=== PATIENT | female | born 1965 | race Caucasian/White ===

== ENCOUNTER 2018-04-07 16:17 | Emergency (ER) | payer BC ==
[2018-04-07 16:55] VITALS: BP 126/57
[2018-04-07] MEDS ORDERED: Fluorescein Sodium TOPICAL* 1 MG TEST STRIP ONE (17:43)
[2018-04-07] MEDS ORDERED: Fluorescein Sodium TOPICAL* 1 MG TEST STRIP OPHTHALMIC ONE (17:43)
--- NOTE | 2018-04-07 17:59 | UC ---
Eye Complaint HPI - HPI Summary HPI Summary: Patient is a 53-year-old female that presents here for evaluation of her left eye. For about a week and a half she has had tearing of the left eye as well as a mild foreign body sensation. She initially thought she got some mascara in her eye. She has no photophobia. She has been using Polytrim antibiotic eyedrops for almost a week without any change in her symptoms. Her left eye is itchy and feels gritty. She does not wear contact lenses. She has not had any URI symptoms. - History of Current Complaint Chief Complaint: UCEye Stated Complaint: LT EYE COMPLAINT Time Seen by Provider: 04/07/18 17:37 Hx Obtained From: Patient ?: Yes Onset/Duration: Gradual Onset, Lasting Days - 1 and 1/2 weeks Timing: Constant Severity Initially: Mild Severity Currently: Mild Pain Intensity: 3 Pain Scale Used: 0-10 Numeric Character: Foreign Body Sensation Aggravating Factor(s): Nothing Alleviating Factor(s): Nothing Associated Signs And Symptoms: Positive: Photophobia, Drainage (Clear) - Allergies/Home Medications Allergies/Adverse Reactions: Allergies Allergy/AdvReac Type Severity Reaction Status Date / Time No Known Allergies Allergy Verified 04/07/18 16:54 Home Medications: Home Medications Escitalopram Oxalate [Lexapro] 10 mg PO DAILY 04/07/18 [History Confirmed ] Polymyx/Trimethoprim OPTH* [Polytrim OPHTH*] 1 drop LEFT EYE Q3H 04/07/18 [ History Confirmed 04/07/18] PMH/Surg Hx/FS Hx/Imm Hx Previously Healthy: Yes - Surgical History Surgical History: Yes - Family History Known Family History: Positive: Hypertension - Social History Alcohol Use: Occasionally Substance Use Type: None Smoking Status (MU): Heavy Every Day Tobacco Smoker Review of Systems Constitutional: Negative Skin: Negative Eyes: Eye Redness ENT: Negative Respiratory: Negative Cardiovascular: Negative Gastrointestinal: Negative Genitourinary: Negative Motor: Negative Neurovascular: Negative Musculoskeletal: Negative Neurological: Negative Psychological: Negative All Other Systems Reviewed And Are Negative: Yes Physical Exam Triage Information Reviewed: Yes Appearance: Well-Appearing, No Pain Distress, Well-Nourished Vital Signs: Initial Vital Signs Temp 97.4 F 04/07/18 16:50 Pulse 75 10/30/18 16:50 Resp 16 04/07/18 16:50 BP 126/57 04/07/18 16:50 Pulse Ox 100 04/07/18 16:50 Vital Signs Reviewed: Yes Eyes: Positive: Conjunctiva Inflamed, Discharge - tearing, Other: - (-) fb noted , (-) flourescein staining ENT: Positive: Hearing grossly normal. Negative: Nasal congestion, Nasal drainage, Tonsillar swelling, Tonsillar exudate, Trismus, Muffled voice, Hoarse voice Neck: Positive: Supple, Nontender, No Lymphadenopathy Respiratory: Positive: Lungs clear, Normal breath sounds, No respiratory distress Cardiovascular: Positive: RRR Musculoskeletal: Positive: ROM Intact, No Edema Neurological: Positive: Alert Psychological Exam: Normal Skin Exam: Normal Eye Complaint Course/Dx - Differential Dx/Diagnosis Provider Diagnoses: left eye irritation and FB sensation Discharge - Sign-Out/Discharge Documenting (check all that apply): Patient Departure All imaging exams completed and their final reports reviewed: No Studies - Discharge Plan Condition: Stable Disposition: HOME Prescriptions: Erythromycin OPHTH.OINT* [Ilotycin OPHTH.OINT*] 1 applic LEFT EYE BEDTIME 7 Days #1 ophth.oint Referrals: Tommy Hays MD [Medical Doctor] - 1 Day (recheck in 1-2 days) Ramila Gallegos MD [Medical Doctor] - (1-2 days) Additional Instructions: ZADITOR eye drops (OTC) I suggest you see an home health billing specialist for evaluation I did not see a foreign body or scratch - Billing Disposition and Condition Condition: STABLE Disposition: Home
== END 2018-04-07 18:01 | disposition home or self-care (01) ==
LOC: UCCORT 16:17
DX: H57.89 Other specified disorders of eye and adnexa (principal); F17.200 Nicotine dependence, unspecified, uncomplicated
CPT/HCPCS: 99202; A9270-GY; G0463